=== PATIENT | female | born 1975 | race Asian ===

== ENCOUNTER → 2017-08-10 | Outpatient (CLI) | payer BC, OTHER ==
[~2017-08-10] MED LIST: FERR-46 PO; METF500T4 PO
[2017-08-10 15:23] LABS: HEMOGLOBIN 11.6 g/dL (11.7-16.4)
[2017-08-10 15:30] LABS: BLOOD UREA NITROGEN 10 mg/dL (7-18)
[2017-08-10 15:38] LABS: ASPARTATE AMINO TRANSFERASE 11 U/L (15-37)
[2017-08-10 17:14] LABS: ANISOCYTOSIS 2+; MICROCYTOSIS 1+
[2017-08-10 17:15] LABS: OVALOCYTES 1+
[2017-08-10 17:16] LABS: HYPOCHROMIA 1+
== END | disposition home or self-care (01) ==
LOC: STAR 13:47
PROVIDERS: ATTEND Specialist
DX: D25.0 Submucous leiomyoma of uterus (principal); N94.5 Secondary dysmenorrhea; D62 Acute posthemorrhagic anemia; N94.12 Deep dyspareunia; N92.1 Excessive and frequent menstruation with irregular cycle
CPT/HCPCS: 36415; 80053; 84703; 85025; 93005

== ENCOUNTER 2017-08-24 08:08 | Day surgery (SDC) | payer BC, OTHER ==
[~2017-08-24] VITALS: Ht 162.6 cm; Wt 72.2 kg
[~2017-08-24 08:08] MED LIST changes: +BUPIVACAINE/PF 0.25% ONE; +EPINEPHRINE 1 MG/ML, 1ML ONE
[2017-08-24] MEDS ORDERED: MIDAZOLAM 1 MG/ML, 2ML ONE (08:21)
[2017-08-24] MEDS ORDERED: FENTANYL PF 250 MCG/5ML ONE (08:22)
[2017-08-24] MEDS ORDERED: DEXAMETHASONE 4 MG/ML, 1ML ONE (08:23)
[2017-08-24] MEDS ORDERED: LIDOCAINE-MPF 2% ,5ML ONE (08:23)
[2017-08-24] MEDS ORDERED: ROCURONIUM 10 MG/ML,10ML ONE (08:23)
[2017-08-24] MEDS ORDERED: ONDANSETRON 2MG/ML, 2ML ONE (08:23)
[2017-08-24] MEDS ORDERED: LIDOCAINE GEL 2%, 5ML ONE (08:23)
[2017-08-24] MEDS ORDERED: SUCCINYLCHOLINE 20 MG/ML, 10ML ONE (08:23)
[2017-08-24] MEDS ORDERED: PROPOFOL 10 MG/ML, 20ML ONE (08:23)
[2017-08-24] MEDS ORDERED: NEOSTIGMINE 1 MG/ML, 10ML ONE (08:23)
[2017-08-24] MEDS ORDERED: CEFOTETAN PMX 2GM/50ML 50 ML ONE (08:23)
[2017-08-24] MEDS ORDERED: GLYCOPYRROLATE 0.2MG/1ML, 5ML ONE (08:23)
[2017-08-24] MEDS ORDERED: LACTATED RINGERS 1,000 ML IV SCH (08:28)
[2017-08-24] MEDS ORDERED: LIDOCAINE 1%, 2ML SQ PRN (08:30)
[2017-08-24] MEDS ORDERED: LIDOCAINE 1%, 2ML ONE (08:40)
[2017-08-24 08:44] LABS: HCG UR LOT HCG706132
[2017-08-24 08:48] LABS: HCG UR OBC PASS
[2017-08-24] MEDS ORDERED: KETOROLAC 30 MG/1 ML ONE (09:28)
[2017-08-24] MEDS ORDERED: LABETALOL 5MG/ML 40ML VIAL ONE (09:28)
[2017-08-24] MEDS ORDERED: LORazepam 2 MG/ML, 1ML IVPush PRN (10:00)
[2017-08-24] MEDS ORDERED: LABETALOL 5MG/ML, 20ML IV PRN (10:00)
[2017-08-24] MEDS ORDERED: DIAZEPAM 5 MG/ML, 2ML IVPush PRN (10:00)
[2017-08-24] MEDS ORDERED: ONDANSETRON 2MG/ML, 2ML IVPush PRN (10:00)
[2017-08-24] MEDS ORDERED: PROMETHAZINE 25 MG/ML, 1ML IV PRN (10:00)
[2017-08-24] MEDS ORDERED: OXYcodone 5 MG/5 ML ORAL.SOL UDC PO PRN (10:00)
[2017-08-24] MEDS ORDERED: MEPERIDINE/PF 25MG/0.5ML IVPush PRN (10:00)
[2017-08-24] MEDS ORDERED: ACETAMINOPHEN 325 MG TABLET PO PRN (10:00)
[2017-08-24] MEDS ORDERED: MIDAZOLAM 1 MG/ML, 2ML IV PRN (10:00)
[2017-08-24] MEDS ORDERED: METOCLOPRAMIDE 5 MG/ML, 2ML IV PRN (10:00)
[2017-08-24] MEDS ORDERED: HYDROmorphone 1 MG/ML, 1ML IV PRN (10:00)
[2017-08-24] MEDS ORDERED: ALBUTEROL/IPRATROPIUM 2.5MG/0.5MG, 3 ML NPPB PRN (10:00)
[2017-08-24] MEDS ORDERED: hydrALAzine 20 MG/ML, 1ML IV PRN (10:00)
[2017-08-24] MEDS ORDERED: HYDROmorphone 1 MG/ML, 1ML ONE (11:33)
[2017-08-24] MEDS ORDERED: OXYcodone 5 MG/5 ML ORAL.SOL UDC ONE (12:07)
[2017-08-24] MEDS ORDERED: FENTANYL PF 100 MCG/2ML ONE (12:07)
[2017-08-24] MEDS ORDERED: ACETAMINOPHEN 650 MG/20.3 ML UDC ONE (12:07)
[2017-08-24] MEDS: FENTANYL PF 100 MCG/2ML IV PRN ×2 (12:13→12:41)
[2017-08-24] MEDS ORDERED: HYDROmorphone 2 MG/ML, 1ML ONE (12:29)
== END 2017-08-24 16:13 ==
LOC: OUT 08:08
PROVIDERS: ATTEND Specialist
DX: N94.10 Unspecified dyspareunia (principal); N94.6 Dysmenorrhea, unspecified; N92.1 Excessive and frequent menstruation with irregular cycle; D25.9 Leiomyoma of uterus, unspecified; N80.0 Endometriosis of uterus; D64.9 Anemia, unspecified; E11.9 Type 2 diabetes mellitus without complications; Z98.890 Other specified postprocedural states
CPT/HCPCS: 36415; 52000; 58571; 81001; 81025; 82962; 86850; 86900; 87077; 87086; 87186; 88305; 88307; J0171; J0330; J1100; J1170; J1885; J2250; J2405; J2704; J2710; J3010; J3490; J7120; S0074; S2900